=== PATIENT | female | born 1950 | race Caucasian/White ===

== ENCOUNTER 2018-01-04 11:21 | Outpatient (CLI) | payer MEDICARE, MEDICAID | END 2018-01-04 11:22 | disposition home or self-care (01) | LOC: BICMAMMO 11:21 | PROVIDERS: ATTEND Family Medicine | DX: Z12.31 Encounter for screening mammogram for malignant neoplasm of breast (principal) | CPT/HCPCS: 77063; 77067 ==

== ENCOUNTER 2018-06-07 14:34 | Outpatient (CLI) | payer MEDICARE, MEDICAID ==
--- NOTE | 2018-06-07 15:46 | BD ---
DEXA SCAN: DATE: 06/07/2018. PROVIDED CLINICAL HISTORY: Screening. FINDINGS: Lumbar Spine: BMD (g/cm2) L1 0.956 T-Score: -0.3 1.4 L2 1.113 T-Score: 0.8 2.6 L3 1.158 T-Score: 0.7 2.6 L4 1.118 T-Score: 0.5 2.5 L1-L4 1.094 T-Score: 0.4 2.3 Femoral Neck: 0.727 T-Score: -1.1 0.5 Total Femur: 1.116 T-Score: 1.4 2.7 TEN-YEAR FRACTURE RISK: Major osteoporotic fracture 7.9%. Hip fracture 1.1%. Impression: Calculated bone mineral density meets WHO criteria for osteopenia in the left femoral neck and places the patient at increased risk for fracture. POS: [facility]
== END 2018-06-07 14:35 | disposition home or self-care (01) ==
LOC: BICMAMMO 14:34
PROVIDERS: ATTEND Family Medicine
DX: Z13.820 Encounter for screening for osteoporosis (principal); M85.852 Other specified disorders of bone density and structure, left thigh; Z78.0 Asymptomatic menopausal state
CPT/HCPCS: 77080

== ENCOUNTER 2020-08-13 12:47 | Outpatient (CLI) | payer MEDICARE, MEDICAID | END 2020-08-13 12:48 | disposition home or self-care (01) | LOC: BICMAMMO 12:47 | PROVIDERS: ATTEND Family Medicine | DX: Z12.31 Encounter for screening mammogram for malignant neoplasm of breast (principal); Z80.3 Family history of malignant neoplasm of breast | CPT/HCPCS: 77063; 77067 ==

== ENCOUNTER 2021-01-11 13:43 | Outpatient (CLI) | payer MEDICARE | END 2021-01-11 13:44 | disposition home or self-care (01) | LOC: BICRAD 13:43 | PROVIDERS: ATTEND Family Medicine | DX: M79.671 Pain in right foot (principal) ==

== ENCOUNTER 2021-01-28 08:29 | Outpatient (CLI) | payer MEDICARE, MEDICAID | END 2021-01-28 08:30 | disposition home or self-care (01) | LOC: BICMAMMO 08:29 | PROVIDERS: ATTEND Family Medicine | DX: Z13.820 Encounter for screening for osteoporosis (principal); Z78.0 Asymptomatic menopausal state; R79.89 Other specified abnormal findings of blood chemistry; M85.852 Other specified disorders of bone density and structure, left thigh; K76.0 Fatty (change of) liver, not elsewhere classified | CPT/HCPCS: 76705; 77080 ==

== ENCOUNTER 2021-08-14 12:49 | Outpatient (CLI) | payer MEDICARE, MEDICAID | END 2021-08-14 12:50 | disposition home or self-care (01) | LOC: BICMAMMO 12:49 | PROVIDERS: ATTEND Family Medicine | DX: Z12.31 Encounter for screening mammogram for malignant neoplasm of breast (principal); Z80.3 Family history of malignant neoplasm of breast | CPT/HCPCS: 77063; 77067 ==

== ENCOUNTER 2022-06-03 10:22 | Outpatient (CLI) | payer OTHER, MEDICAID | END 2022-06-03 10:23 | disposition home or self-care (01) | LOC: BICULT 10:22 | PROVIDERS: ATTEND Family Medicine | DX: R79.89 Other specified abnormal findings of blood chemistry (principal); Z90.49 Acquired absence of other specified parts of digestive tract | CPT/HCPCS: 76705 ==

== ENCOUNTER 2023-06-02 06:30 | Day surgery (SDC) | payer OTHER, MEDICAID ==
[2023-05-29 10:42] VITALS: BMI 37.5
[~2023-06-02 06:30] MED LIST: EPINEPHrine 0.3 MG in Ophthalmic Irrigation Solution 500 ML IRR SCH
[2023-06-02] MEDS ORDERED: PHENYLephrine 2.5% Ophth Soln 15 ml Bottle ONE (06:49)
[2023-06-02] MEDS ORDERED: Cyclopentolate 2% Opth Drop 15 ML BOT ONE (07:00)
[2023-06-02] MEDS ORDERED: Midazolam HCl 2 mg/2 ml Vial ONE (08:33)
[2023-06-02] MEDS ORDERED: fentaNYL 50 mcg/mL 1 mL Vial ONE (08:34)
== END 2023-06-02 09:57 | disposition home or self-care (01) ==
LOC: SDC 06:30
PROVIDERS: ATTEND Ophthalmology Retina Specialist
PROC: 08T53ZZ Resection of Left Vitreous, Percutaneous Approach (ICD-10-PCS; principal; 2023-06-02)
PROC: 08NF3ZZ Release Left Retina, Percutaneous Approach (ICD-10-PCS; 2023-06-02)
DX: H35.342 Macular cyst, hole, or pseudohole, left eye (principal); Z88.2 Allergy status to sulfonamides
CPT/HCPCS: 67042; J3010; 67025; J0171; J2250

== ENCOUNTER 2023-09-28 12:14 | Outpatient (CLI) | payer OTHER, MEDICAID | END 2023-09-28 12:15 | disposition home or self-care (01) | LOC: BICMAMMO 12:14 | PROVIDERS: ATTEND Family Medicine | DX: Z12.31 Encounter for screening mammogram for malignant neoplasm of breast (principal); Z80.3 Family history of malignant neoplasm of breast | CPT/HCPCS: 77063; 77067 ==